=== PATIENT | female | born 1970 | race Caucasian/White ===

== ENCOUNTER 2023-10-29 09:08 | Day surgery (SDC) | payer MEDICARE ==
[2023-10-29] MEDS ORDERED: Depo-Medrol 40 MG/ML IM ONE (09:09)
[2023-10-29] MEDS ORDERED: BUPIVACAINE 0.5% VIAL IJ ONE (09:09)
[2023-10-29 09:59] LABS: HCG URINE TEST NEGATIVE (NEGATIVE)
[2023-10-29] MEDS ORDERED: DIPRIVAN 200 MG/20 ML IV ONE (11:03)
--- NOTE | 2023-10-29 12:01 | XRAY ---
Indication: Bilateral SI joint injection. Intraoperative fluoroscopy provided for 26 seconds. 2 digital spot images submitted for interpretation demonstrates posterior needle tips projecting over left and right SI joints. Small amount of contrast injected for both needle tip placement. Correlate with intraoperative findings/report.
--- NOTE | 2023-10-29 12:47 | XRAY ---
26 seconds of fluoroscopy was used in surgery for a bilateral sacroiliac joint injection.
[2023-10-29] MEDS ORDERED: Lactated Ringers 1,000 ML IV ONE (13:46)
== END 2023-10-29 11:33 | disposition home or self-care (01) ==
LOC: SDC-PAIN 09:08
PROVIDERS: ATTEND Psychiatry & Neurology Pain Medicine
DX: M46.1 Sacroiliitis, not elsewhere classified (principal); E11.9 Type 2 diabetes mellitus without complications
CPT/HCPCS: 01992; 27096; 72202; 77002; 81025; 82947; G0260; J2704; Q9966